=== PATIENT | male | born 1980 | race Caucasian/White ===

== ENCOUNTER 2016-08-19 15:26 | Emergency (ER) | payer OTHER ==
[2016-08-19 15:31] VITALS: TEMP 97.5; BMI 31.4
--- NOTE | 2016-08-19 15:41 | PDOC ---
History of Present Illness - General History Source: Patient Exam Limitations: No Limitations - History of Present Illness Initial Comments: 08/19/16 15:48 The patient is a 35 year old male, with no significant past medical history who presents to the emergency department with nausea and left sided back/chest pain occurring today. He notes his chest pain often radiates to his arm and back area , describing his pain as sharp and ranks it a 4/10 in pain intensity. He denies any recent strenuous activity. 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 He denies any recent stress test or ECHO test. He denies any calf pain or LE pain. He denies any shortness of breath. He denies any recent vomit, diarrhea or constipation. He denies any recent fevers, chills, or dizziness. Allergies: NKA Past surgical history: denies Social History: Nonsmoker. Denies EtOH use and drug use. <Nathan Flores - Last Filed: 08/19/16 15:48> <Minal Young - Last Filed: 08/19/16 17:28> - General Chief Complaint: Chest Pain Stated Complaint: CHEST PAIN Time Seen by Provider: 08/19/16 15:31 Past History <Nathan Flores - Last Filed: 08/19/16 15:48> - Past Medical History Other medical history: DENIE - Psycho/Social/Smoking Cessation Hx Anxiety: No Suicidal Ideation: No Smoking History: Never smoked Have you smoked in the past 12 months: No Hx Alcohol Use: No Drug/Substance Use Hx: No Substance Use Type: None <Minal Young - Last Filed: 08/19/16 17:28> - Past Medical History Allergies/Adverse Reactions: Allergies Allergy/AdvReac Type Severity Reaction Status Date / Time No Known Allergies Allergy Verified 08/19/16 15:28 Home Medications: Ambulatory Orders NK [No Known Home Medication] 02/09/16 Review of Systems - Review of Systems Comments:: 08/19/16 15:48 GENERAL/CONSTITUTIONAL: No fever or chills. No weakness. HEAD, EYES, EARS, NOSE AND THROAT: No change in vision. No ear pain or discharge. No sore throat. CARDIOVASCULAR: + chest pain No shortness of breath. RESPIRATORY: No cough, wheezing, or hemoptysis. GASTROINTESTINAL: No nausea, vomiting, diarrhea or constipation. GENITOURINARY: + dysuria No: frequency, or change in urination. MUSCULOSKELETAL: +back pain. No joint or muscle swelling or pain. No neck pain. SKIN: No rash NEUROLOGIC: No headache, vertigo, loss of consciousness, or change in strength/ sensation. ENDOCRINE: No increased thirst. No abnormal weight change. HEMATOLOGIC/LYMPHATIC: No anemia, easy bleeding, or history of blood clots. ALLERGIC/IMMUNOLOGIC: No hives or skin allergy. <Nathan Flores - Last Filed: 08/19/16 15:48> *Physical Exam - Vital Signs Last Vital Signs Temp Pulse Resp BP Pulse Ox 97.5 F L 80 16 139/97 98 08/19/16 15:27 08/19/16 15:27 08/19/16 15:27 08/19/16 15:27 08/19/16 15:27 - Physical Exam Comments: 08/19/16 15:49 GENERAL: Awake, alert, and fully oriented, in no acute distress HEAD: No signs of trauma EYES: PERRLA, EOMI, sclera anicteric, conjunctiva clear ENT: Auricles normal inspection, hearing grossly normal, nares patent, oropharynx clear without exudates. Moist mucosa NECK: Normal ROM, supple, no lymphadenopathy, JVD, or masses LUNGS: Breath sounds equal, clear to auscultation bilaterally. No wheezes, and no crackles HEART: Regular rate and rhythm, normal S1 and S2, no murmurs, rubs or gallops ABDOMEN: Soft, nontender, normoactive bowel sounds. No guarding, no rebound. No masses EXTREMITIES: Normal range of motion, no edema. No clubbing or cyanosis. No cords, erythema, or tenderness NEUROLOGICAL: Cranial nerves II through XII grossly intact. Normal speech, normal gait SKIN: Warm, Dry, normal turgor, no rashes or lesions noted. <Nathan Flores - Last Filed: 08/19/16 15:48> - Vital Signs Last Vital Signs Temp Pulse Resp BP Pulse Ox 97.5 F L 80 16 139/97 98 08/19/16 15:27 08/19/16 15:27 08/19/16 15:27 08/19/16 15:27 08/19/16 15:27 <Minal Young - Last Filed: 08/19/16 17:28> Heart Score/ECG Review - History History: Slightly suspicious - Electrocardiogram EKG: Normal - Age Age: </= 45 - Risk Factors Risk Factors Heart Score: Yes Positive family hx of cardiac disease Based on the list above the patient has:: 1-2 risk factors - Troponin Troponin: </= normal limit - Score Heart Score - Total: 1 - ECG Impressions Comment:: EKG read 15:38- NSR 78 bpm, no acute ST/T changes <Minal Young - Last Filed: 08/19/16 17:28> ED Treatment Course - LABORATORY CBC & Chemistry Diagram: 08/19/16 15:55 08/19/16 15:55 <Minal Young - Last Filed: 08/19/16 17:28> *DC/Admit/Observation/Transfer - Attestations Scribe Attestion: 08/19/16 15:48 Documentation prepared by Nathan Flores, acting as mobile paramedical examiner for Minal Young MD. <Nathan Flores - Last Filed: 08/19/16 15:48> - Discharge Dispostion Admit: No <Minal Young - Last Filed: 08/19/16 17:28> Diagnosis at time of Disposition: Chest pain Qualifiers: Chest pain type: unspecified Qualified Code(s): R07.9 - Chest pain, unspecified - Discharge Dispostion Disposition: HOME Condition at time of disposition: Stable - Patient Instructions Printed Discharge Instructions: DI for Chest Pain
[2016-08-19 16:20] LABS: BASOPHIL 0.7 % (0-2.0); EOSINOPHIL 1.5 % (0-4.5); MCH 26.4 pg (25.7-33.7); MCHC 32.9 g/dl (32.0-35.9); MEAN CELL VOLUME 80.2 fl (80-96); MEAN PLT VOLUME 9.3 fl (7.5-11.1); NEUTROPHILS 74.2 % (42.8-82.8); PLATELET COUNT 182 K/MM3 (134-434); RDW 12.6 % (11.9-15.9); WHITE BLOOD COUNT 9.1 K/mm3 (4.0-10.0)
[2016-08-19 16:24] LABS: ALBUMIN 4.1 g/dl (3.5-5.0); ALK PHOS 45 U/L (32-92); ANION GAP 6 (8-16); CALCIUM 9.1 mg/dl (8.4-10.2); CO2 26 mmol/L (22-28); CPK(DFH) 99 IU/L (38-174); CREATININE 1.1 mg/dl (0.6-1.3); GLUCOSE,RANDOM 108 mg/dl (74-106); SGOT/AST 23 U/L (10-42); SGPT/ALT 35 U/L (10-40); TOT PROT 6.9 g/dl (6.4-8.3)
[2016-08-19 16:45] VITALS: BP 147/99; PULSE 88
[2016-08-19 16:52] LABS: BILIRUBIN,TOTAL < 0.3 mg/dl (0.2-1.0)
[2016-08-19 17:26] LABS: TROPONIN I (DFP) < 0.03 ng/ml (0.03-0.50)
--- NOTE | 2016-08-20 10:12 | EKG ---
Test Reason : Blood Pressure : / mmHG Vent. Rate : 078 BPM Atrial Rate : 078 BPM P-R Int : 162 ms QRS Dur : 080 ms QT Int : 358 ms P-R-T Axes : 061 039 032 degrees QTc Int : 408 ms NORMAL SINUS RHYTHM WITH SINUS ARRHYTHMIA NORMAL ECG NO PREVIOUS ECGS AVAILABLE Confirmed by KELBY HERNANDEZ MD ([id number]) on 08/20/2016 10:11:48 AM Referred By: MD ALTMAN Confirmed By:KELBY HERNANDEZ MD
== END 2016-08-19 17:36 | disposition home or self-care (01) ==
LOC: FER 15:26
DX: R07.9 Chest pain, unspecified (principal)
CPT/HCPCS: 36415; 71010-TC; 80053; 82550; 84484; 85025; 93005; 99284-25

== ENCOUNTER 2020-05-24 12:33 | Emergency (ER) | payer OTHER ==
[2020-05-24 12:49] VITALS: BP 145/104; PULSE 76; TEMP 98.5; BMI 29.0
== END 2020-05-24 13:35 | disposition home or self-care (01) ==
LOC: FER 12:33
DX: K64.8 Other hemorrhoids (principal)
CPT/HCPCS: 99283-25

== ENCOUNTER 2021-09-07 12:16 | Emergency (ER) | payer OTHER ==
[2021-09-07 12:36] VITALS: BP 160/90; PULSE 87; TEMP 98.5; BMI 29.8
[2021-09-07 13:46] LABS: ALBUMIN 4.3 g/dl (3.4-5.0); BILIRUBIN,TOTAL 0.6 mg/dl (0.2-1); CALCIUM 9.8 mg/dl (8.5-10); TOT PROT 7.5 g/dl (6.4-8.2)
[2021-09-07 14:20] LABS: BASO % 0.3 % (0-2.0); HEMATOCRIT 49.9 % (35.4-49); MCH 26.8 pg (25.7-33.7); MEAN CELL VOLUME 78.8 fl (80-96); MEAN PLT VOLUME 8.5 fl (7.5-11.1); NEUT % 52.7 % (42.8-82.8); PLATELET COUNT 182 10^3/uL (134-434); RBC 6.34 M/mm3 (4.00-5.60); RDW 14.4 % (11.9-15.9); WHITE BLOOD COUNT 6.6 K/mm3 (4.0-10.0)
== END 2021-09-07 16:16 | disposition home or self-care (01) ==
LOC: FER 12:16
DX: M54.50 Low back pain, unspecified (principal); M79.602 Pain in left arm
CPT/HCPCS: 36415; 71046-TC-FY; 80053; 84484; 85025; 93005; 99285-25